=== PATIENT | female | born 1970 | race Hispanic/Latino ===

== ENCOUNTER → 2023-11-10 | Outpatient (CLI) | payer BC, SELFPAY ==
[~2023-11-10] VITALS: Ht 157.5 cm; Wt 116.6 kg
[~2023-11-10] MED LIST: ACET-2743 PO; ALBUHFA IH; BISA-151 PO; CHOL50002 PO; ESOM40CA66 PO; FAMO40TA7 PO; HYDR25TA PO; LOSA50TA64 PO; METAMUCIL GUMMIES PO; MULT200T12 PO; ROSU5TAB43 PO; SUMA100T16 PO; TIRZ10PE SQ; TRAM-530 PO
[2023-11-10 14:12] LABS: BASOPHILS # (AUTO) 0.03 K/uL (0.00-0.20); BASOPHILS % (AUTO) 0.3 % (0.0-5.0); EOSINOPHILS # (AUTO) 0.09 K/uL (0.00-0.70); EOSINOPHILS % (AUTO) 0.8 % (0.0-8.0); HEMATOCRIT 38.2 % (36-48); IMMATURE GRANULOCYTE ABSOLUTE 0.04 K/uL (0-1); LYMPHOCYTES % (AUTO) 27.8 % (21.0-51.0); MEAN CORPUSCULAR HEMOGLOBIN 25.6 pg (27.0-33.0); MEAN CORPUSCULAR HGB CONC 32.5 g/dL (32.0-36.0); MEAN CORPUSCULAR VOLUME 78.9 fL (79-99); MONOCYTES # (AUTO) 0.5 K/uL (0.1-1.0); MONOCYTES % (AUTO) 4.9 % (3.0-13.0); NEUTROPHILS % (AUTO) 65.8 % (40.0-77.0); PLATELET COUNT (AUTO) 343 K/uL (130-400); RED BLOOD CELL COUNT(AUTO) 4.84 MIL/uL (4.00-5.50); RED CELL DISTRIBUTION WIDTH 14.2 % (11.0-15.5); WHITE BLOOD COUNT (AUTO) 10.6 K/uL (4.8-10.8)
[2023-11-10 14:23] LABS: CREATININE 0.8 mg/dL (0.5-1.0)
[2023-11-10 14:59] VITALS: BP 139/84; PULSE 80; RESP 18
== END | disposition home or self-care (01) ==
LOC: EDSTATUS 13:00 → DAH 13:17 → EDSTATUS 11-12 16:00
PROVIDERS: ATTEND Surgery
DX: K21.00 Gastro-esophageal reflux disease with esophagitis, without bleeding (principal); K44.9 Diaphragmatic hernia without obstruction or gangrene
CPT/HCPCS: 86900; 80048; 84703; 85025; 86850; 86901; 36415; 93005; A6260